=== PATIENT | female | born 1995 | race Caucasian/White ===

== ENCOUNTER 2020-04-23 11:28 | Emergency (ER) | payer OTHER ==
[2020-04-23 11:34] VITALS: BP 135/85
--- NOTE | 2020-04-23 11:57 | ER Document Report ---
HPI - HPI Patient complains to provider of: Eye injury Time Seen by Provider: 04/23/20 11:46 Onset: Yesterday Onset/Duration: Gradual Pain Level: Denies Context: Patient states she was wiping her face with a paper towel yesterday and accidentally poked her right eye. Patient complains of tearing, light sensitivity and right eye pain. Patient denies any use of contact lenses or glasses. Associated Symptoms: Other - Right eye tearing Exacerbated by: Other - light Relieved by: Denies Similar symptoms previously: No Recently seen / treated by doctor: No - ROS ROS below otherwise negative: Yes Systems Reviewed and Negative: Yes All other systems reviewed and negative - REPRODUCTIVE LMP: 03-21-20 Reproductive: DENIES: : Past Medical History - General Information source: Patient - Social History Smoking Status: Former Smoker Chew tobacco use (# tins/day): No Frequency of alcohol use: Occasional Drug Abuse: None Occupation: pharmacy Family History: Reviewed & Not Pertinent Renal/ Medical History: Reports: Hx Ovarian Cysts GI Medical History: Reports: Hx Gastroesophageal Reflux Disease Past Surgical History: Reports: Hx Oral Surgery Vertical Provider Document - CONSTITUTIONAL Agree With Documented VS: Yes Exam Limitations: No Limitations General Appearance: WD/WN, No Apparent Distress - HEENT HEENT: Atraumatic, Normocephalic Notes: 1 mm Corneal abrasion to the 4 o'clock position of the right cornea, negative Arjun sign - NECK Neck: Normal Inspection - RESPIRATORY Respiratory: No Respiratory Distress - MUSCULOSKELETAL/EXTREMETIES Musculoskeletal/Extremeties: MAEW - NEURO Level of Consciousness: Awake, Alert, Appropriate Motor/Sensory: No Motor Deficit - DERM Integumentary: Warm, Dry Course - Re-evaluation Re-evalutation: 04/23/20 11:55 Small corneal abrasion noted to the right eye. Patient denies any change in vision. Will treat symptomatically and refer to ophthalmology for any persistent pain or problems. - Vital Signs Vital signs: Temp Pulse Resp BP Pulse Ox 98.2 F 75 20 135/85 H 98 04/23/20 11:31 04/23/20 11:31 04/23/20 11:31 04/23/20 11:31 04/23/20 11:31 - Laboratory Results Critical Laboratory Results Reviewed: No Critical Results - Radiology Results Critical Radiology Results Reviewed: No Critical Results Discharge - Discharge Clinical Impression: Corneal abrasion Qualifiers: Encounter type: initial encounter Laterality: right Qualified Code(s): S05.01XA - Injury of conjunctiva and corneal abrasion without foreign body, right eye, initial encounter Condition: Stable Disposition: HOME, SELF-CARE Instructions: Corneal Abrasion ([facility]) Additional Instructions: Return immediately for any new or worsening symptoms Followup with ophthalmology, call tomorrow today a followup appointment Prescriptions: Erythromycin Base [E-Mycin 0.5% Oph Ointment 3.5 gm] 1 applic RT_EYE QID #1 tube Referrals: [facility] [Provider Group] - Follow up tomorrow
== END 2020-04-23 12:03 | disposition home or self-care (01) ==
LOC: ER 11:28
DX: S05.01XA Injury of conjunctiva and corneal abrasion without foreign body, right eye, initial encounter (principal); W22.8XXA Striking against or struck by other objects, initial encounter; Y93.89 Activity, other specified; Z87.891 Personal history of nicotine dependence
CPT/HCPCS: 99283